=== PATIENT | female | born 2000 | race African-American/Black ===

== ENCOUNTER 2022-11-29 06:39 | Emergency (ER) | payer MEDICAID ==
[2022-11-29 07:20] LABS: BASOPHILS ABSOLUTE AUTO 0.08 10^3/uL (0.00-0.50); BASOPHILS PERCENT AUTO 0.5 % (0-1); EOSINOPHILS ABSOLUTE AUTO 0.24 10^3/uL (0.00-1.50); EOSINOPHILS PERCENT AUTO 1.6 % (0-6); HEMATOCRIT 41.2 % (37.0-47.0); HEMOGLOBIN 14.2 g/dL (12.0-16.0); IMMATURE GRAN ABSOLUTE AUTO 0.03 10^3/uL (0.00-0.49); IMMATURE GRAN PERCENT AUTO 0.2 % (0.0-4.9); LYMPHOCYTES ABSOLUTE AUTO 2.44 10^3/uL (0.60-5.00); LYMPHOCYTES PERCENT AUTO 15.8 % (24-44); MEAN CORPUSCULAR HEMOGLOBIN 31.2 pg (27.0-32.0); MEAN CORPUSCULAR HGB CONC 34.5 g/dL (32.0-36.0); MEAN CORPUSCULAR VOLUME 90.5 fL (83.0-97.0); MONOCYTES PERCENT AUTO 5.2 % (0-10); NEUTROPHILS ABSOLUTE AUTO 11.83 x10^3/uL (1.80-8.00); NEUTROPHILS PERCENT AUTO 76.7 % (41-71); PLATELET COUNT,PLT 355 10^3/uL (150-400); RED BLOOD CELL COUNT 4.55 x10^6/uL (4.00-5.50); WHITE BLOOD CELL COUNT,WBC 15.4 10^3/uL (4.0-11.0)
[2022-11-29 07:41] LABS: ALANINE AMINOTRANSFERASE,ALT 18 U/L (12-78); ALBUMIN 3.7 g/dL (3.4-5.0); ALKALINE PHOSPHATASE 113 U/L (46-116); ASPARTATE AMNIOTRANSFERASE,AST 14 U/L (15-37); BLOOD UREA NITROGEN,BUN 8 mg/dL (7-18); CALCIUM 9.1 mg/dL (8.4-10.1); CARBON DIOXIDE,CO2 26 mmol/L (21-32); CHLORIDE,CL 103 mEq/L (98-106); CREATINE KINASE,CK 88 U/L (21-215); CREATININE 0.8 mg/dL (0.6-1.0); EST CRCL DRUG DOSING (CG) 82.53 mL/min; ESTIMATED GFR 106 mL/min (>=60); GLUCOSE RANDOM 89 mg/dL (75-99); LACTATE DEHYDROGENASE,LDH 139 U/L (100-190); LIPASE 35 U/L (16-77); POTASSIUM,K 3.9 mEq/L (3.5-5.0); PROTEIN TOTAL,TP 7.4 g/dL (6.4-8.2); SODIUM,NA 138 mEq/L (136-145)
[2022-11-29 07:43] LABS: PROTHROMBIN TIME 10.3 SEC (9.3-11.3); PTT,PARTIAL THROMBOPLSTIN TIME 23.7 SEC (20.0-30.0)
[2022-11-29 08:00] LABS: BILIRUBIN,URINE NEGATIVE (NEGATIVE); COLOR,URINE YELLOW (YELLOW); GLUCOSE,URINE NEGATIVE (NEGATIVE); KETONES,URINE NEGATIVE (NEGATIVE); LEUKOCYTE ESTERASE,URINE SMALL (NEGATIVE); NITRITE,URINE POSITIVE (NEGATIVE); OCCULT BLOOD,URINE TRACE-INTACT (NEGATIVE); PROTEIN,URINE NEGATIVE (NEGATIVE); UROBILINOGEN,URINE 0.2 EU/dL (0.2-1.0)
[2022-11-29 08:11] LABS: APPEARANCE,URINE CLOUDY (CLEAR); BACTERIA,URINE MANY /HPF (NOT SEEN); EPITHELIAL CELLS,URINE FEW /HPF (NOT SEEN); RBC,URINE 0-5 /HPF (0-5)
[2022-11-29] MEDS ORDERED: cefTRIAXone 1 GM, Lidocaine 1% 2.1 ML IM SCH ×2 (09:30)
[2022-11-29] MEDS ORDERED: Lidocaine 1% 5 ML VIAL ONE (09:36)
== END 2022-11-29 10:10 | disposition home or self-care (01) ==
LOC: CC.ED 06:39
DX: N30.00 Acute cystitis without hematuria (principal); Z20.822 Contact with and (suspected) exposure to COVID-19; Z91.018 Allergy to other foods
CPT/HCPCS: 36415; 71046; 80053; 81001; 82550; 83615; 83690; 84484; 85025; 85610; 85730; 87086; 87088; 87186; 87804; 93005; 93010; 96372; 99284; 99285; J0696; J3490; U0002